=== PATIENT | female | born 1945 | race Caucasian/White ===

== ENCOUNTER → 2017-01-15 | Outpatient (CLI) | payer MEDICARE, OTHER ==
[~2017-01-15] MED LIST: GADOBUTROL 10 MMOL/10 ML VIAL ONE
== END | disposition home or self-care (01) ==
LOC: CFH 12:32
PROVIDERS: ATTEND Internal Medicine Hematology & Oncology
DX: Z79.811 Long term (current) use of aromatase inhibitors (principal)
CPT/HCPCS: 82565; A9585; C8908

== ENCOUNTER → 2017-01-17 | Outpatient (CLI) | payer MEDICARE, OTHER | END | disposition home or self-care (01) | LOC: CFH 10:05 | PROVIDERS: ATTEND Internal Medicine Hematology & Oncology | DX: Z12.31 Encounter for screening mammogram for malignant neoplasm of breast (principal); N63 Unspecified lump in breast; Z85.3 Personal history of malignant neoplasm of breast; Z92.3 Personal history of irradiation; Z92.21 Personal history of antineoplastic chemotherapy; Z98.890 Other specified postprocedural states | CPT/HCPCS: 77063; G0202 ==

== ENCOUNTER 2017-02-26 11:27 | Day surgery (SDC) | payer MEDICARE, OTHER ==
[~2017-02-26] VITALS: Ht 160 cm; Wt 61.8 kg
[~2017-02-26 11:27] MED LIST changes: +ASPI-496 PO; +CALC-451 PO; +CHOL10003 PO; +FOLI0.8T2 PO; -GADOBUTROL 10 MMOL/10 ML VIAL ONE; +LETR2.5T PO; +MULT-717 PO; +OMEG-14 PO; +UBID100C41 PO; +VITA1TAB19 PO
[2017-02-26] MEDS ORDERED: BUPIVACAINE/PF 0.5% ONE (11:31)
[2017-02-26] MEDS ORDERED: EPINEPHRINE 1 MG/ML, 1ML ONE (11:31)
[2017-02-26] MEDS ORDERED: LACTATED RINGERS 1,000 ML IV SCH ×2 (11:57→19:00)
[2017-02-26 12:01] VITALS: BP 195/73
[2017-02-26] MEDS ORDERED: MIDAZOLAM 1 MG/ML, 2ML ONE (12:11)
[2017-02-26] MEDS ORDERED: FENTANYL PF 100 MCG/2ML ONE (12:11)
[2017-02-26] MEDS ORDERED: METOCLOPRAMIDE 5 MG/ML, 2ML IV PRN (12:30)
[2017-02-26] MEDS ORDERED: FENTANYL PF 100 MCG/2ML IV PRN (12:30)
[2017-02-26] MEDS ORDERED: hydrALAzine 20 MG/ML, 1ML IV PRN (12:30)
[2017-02-26] MEDS ORDERED: PROPOFOL 10 MG/ML, 20ML ONE (12:30)
[2017-02-26] MEDS ORDERED: ALBUTEROL SULFATE 2.5 MG/3 ML NPPB PRN (12:30)
[2017-02-26] MEDS ORDERED: EPHEDRINE 50 MG/ML, 1ML IVPush PRN (12:30)
[2017-02-26] MEDS ORDERED: ONDANSETRON 2MG/ML, 2ML IVPush PRN ×2 (12:30→19:00)
[2017-02-26] MEDS ORDERED: MIDAZOLAM 1 MG/ML, 2ML IV PRN (12:30)
[2017-02-26] MEDS ORDERED: HYDROmorphone 1 MG/ML, 1ML IV PRN (12:30)
[2017-02-26] MEDS ORDERED: EPHEDRINE 50 MG/ML, 1ML ONE (12:30)
[2017-02-26] MEDS ORDERED: MEPERIDINE/PF 25MG/0.5ML IVPush PRN (12:30)
[2017-02-26] MEDS ORDERED: OXYcodone 5 MG/5 ML ORAL.SOL UDC PO PRN (12:30)
[2017-02-26] MEDS ORDERED: LABETALOL 5MG/ML, 20ML IV PRN (12:30)
[2017-02-26] MEDS ORDERED: ONDANSETRON 2MG/ML, 2ML ONE (12:30)
[2017-02-26] MEDS ORDERED: CEFAZOLIN 1,000 MG ONE (12:30)
[2017-02-26] MEDS ORDERED: OXYcodone 5 MG/5 ML ORAL.SOL UDC ONE (14:05)
[2017-02-26] MEDS ORDERED: PROMETHAZINE 25 MG/ML, 1ML IM PRN (19:00)
[2017-02-26] MEDS ORDERED: morphine SULFATE 10 MG/ML, 1ML IVPush PRN (19:00)
== END 2017-02-26 15:35 ==
LOC: OUT 11:27 → EDSTATUS 12:00 → OUT 15:35
PROVIDERS: ATTEND Surgery
DX: N63 Unspecified lump in breast (principal); N64.89 Other specified disorders of breast; F17.200 Nicotine dependence, unspecified, uncomplicated; Z79.82 Long term (current) use of aspirin; Z85.3 Personal history of malignant neoplasm of breast; Z72.89 Other problems related to lifestyle
CPT/HCPCS: 19120; 76098; 88307; 88329; J0171; J0690; J2250; J2405; J2704; J3010; J3490